=== PATIENT | male | born 1960 | race American Indian/Alaskan Native ===

== ENCOUNTER 2019-03-15 09:28 | Emergency (ER) | payer OTHER ==
[2019-03-15] MEDS ORDERED: KETOROLAC 60 MG/2 ML INJ IM ONE (10:22)
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
[2019-03-15] MEDS ORDERED: traMADol 50 MG TAB PO ONE (12:19)
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
[2019-03-15 13:28] VITALS: BP 124/64
== END 2019-03-15 13:28 | disposition home or self-care (01) ==
LOC: ED 09:28
DX: S16.1XXA Strain of muscle, fascia and tendon at neck level, initial encounter (principal); S39.012A Strain of muscle, fascia and tendon of lower back, initial encounter; S80.01XA Contusion of right knee, initial encounter; F25.0 Schizoaffective disorder, bipolar type; F17.200 Nicotine dependence, unspecified, uncomplicated; Z79.899 Other long term (current) drug therapy; V59.59XA Passenger in pick-up truck or van injured in collision with other motor vehicles in traffic accident, initial encounter; Y93.89 Activity, other specified; Y92.410 Unspecified street and highway as the place of occurrence of the external cause; Y99.8 Other external cause status
CPT/HCPCS: 70450; 72100; 72125; 73562; 82962; 96372; 99284; J1885

== ENCOUNTER 2020-12-18 13:22 | Emergency (ER) | payer SELFPAY ==
[2020-12-18 15:32] VITALS: BP 131/72
--- NOTE | 2020-12-18 15:44 | Emergency Department Report ---
ED Back Pain/Injury HPI - General Chief Complaint: Back Pain/Injury Stated Complaint: LOW BACK PAIN/NECK PAIN Time Seen by Provider: 12/18/20 15:37 Source: patient Limitations: No Limitations - History of Present Illness Initial Comments: This is a 60-year-old -[place] male who presents to the emergency room with neck and low back pain for 2 to 3 days. Patient states he was throwing out some bags while at work a few days ago when his neck and back started to ache. He reports pain is a 9 intermittent achy intensity, pain level 6/10 on pain scale. Denies urinary or bowel, urinary frequency, urgency, dysuria, penile discharge, fever, chills, abdominal pain, numbness or tingling, bruising, or edema. - Related Data Previous Rx's Medication Instructions Recorded Last Taken Type Acetaminophen/Codeine 1 tab PO Q6H PRN #12 tab 02/15/14 Unknown Rx [Acetaminophen-Codeine #3 TAB] Ciprofloxacin HCl [Cipro] 500 mg PO Q12H #20 tab 02/15/14 Unknown Rx Clotrimazole 1% [Lotrimin 1%] 1 applic TP BID #45 gm 02/15/14 Unknown Rx Ibuprofen [Motrin 600 MG tab] 600 mg PO Q8H PRN #30 tablet 02/15/14 Unknown Rx Sulfamethoxazole/Trimethoprim 1 each PO Q12H #20 tablet 02/15/14 Unknown Rx [Bactrim Ds] Ibuprofen [Motrin] 800 mg PO Q8HR PRN #30 tablet 03/15/19 Unknown Rx traMADoL [Ultram 50 MG tab] 50 mg PO Q6HR PRN #20 tablet 03/15/19 Unknown Rx Ibuprofen [Motrin 800 MG tab] 800 mg PO Q8HR PRN #20 tablet 12/18/20 Unknown Rx methOCARBAMOL [Robaxin TAB] 500 mg PO Q6H PRN #12 tablet 12/18/20 Unknown Rx Allergies Allergy/AdvReac Type Severity Reaction Status Date / Time No Known Allergies Allergy Verified 12/18/20 15:32 ED Review of Systems ROS: Stated complaint: LOW BACK PAIN/NECK PAIN Other details as noted in HPI Constitutional: denies: chills, fever Respiratory: denies: cough, shortness of breath, wheezing Cardiovascular: denies: chest pain, palpitations Musculoskeletal: back pain (lumbar), arthralgia (neck pain). denies: joint swelling Skin: denies: rash, lesions Neurological: denies: headache, weakness, paresthesias Psychiatric: denies: anxiety, depression ED Past Medical Hx - Past Medical History Previous Medical History?: No Hx Psychiatric Treatment: No (bipolar/paranoid schizophrenia) - Surgical History Past Surgical History?: No - Social History Smoking Status: Unknown if ever smoked - Medications Home Medications: Home Medications Medication Instructions Recorded Confirmed Last Taken Type Acetaminophen/Codeine 1 tab PO Q6H PRN #12 tab 02/15/14 Unknown Rx [Acetaminophen-Codeine #3 TAB] Ciprofloxacin HCl [Cipro] 500 mg PO Q12H #20 tab 02/15/14 Unknown Rx Clotrimazole 1% [Lotrimin 1%] 1 applic TP BID #45 gm 02/15/14 Unknown Rx Ibuprofen [Motrin 600 MG tab] 600 mg PO Q8H PRN #30 tablet 02/15/14 Unknown Rx Sulfamethoxazole/Trimethoprim 1 each PO Q12H #20 tablet 02/15/14 Unknown Rx [Bactrim Ds] Ibuprofen [Motrin] 800 mg PO Q8HR PRN #30 tablet 03/15/19 Unknown Rx traMADoL [Ultram 50 MG tab] 50 mg PO Q6HR PRN #20 tablet 03/15/19 Unknown Rx Ibuprofen [Motrin 800 MG tab] 800 mg PO Q8HR PRN #20 tablet 12/18/20 Unknown Rx methOCARBAMOL [Robaxin TAB] 500 mg PO Q6H PRN #12 tablet 12/18/20 Unknown Rx ED Physical Exam - General Limitations: No Limitations General appearance: alert, in no apparent distress - Neck Neck exam: Present: tenderness (bilateral trapezius TTP, no c-spine midline tenderness, stepoff, or deformity), full ROM. Absent: meningismus, lymphadenopathy - Respiratory Respiratory exam: Present: normal lung sounds bilaterally. Absent: respiratory distress - Cardiovascular Cardiovascular Exam: Present: regular rate, normal rhythm. Absent: systolic murmur, diastolic murmur, rubs, gallop - Back Exam Back exam: Present: full ROM, paraspinal tenderness (right L-spine paraspinal ttp, no midline tenderness, stepoff, deformity, or erythma). Absent: vertebral tenderness, rash noted - Neurological Exam Neurological exam: Present: alert, oriented X3, normal gait - Psychiatric Psychiatric exam: Present: normal affect, normal mood - Skin Skin exam: Present: warm, dry, intact, normal color. Absent: rash ED Course Vital Signs 12/18/20 12/18/20 13:23 17:29 Temperature 98.9 F Pulse Rate 83 63 Respiratory 16 Rate Blood Pressure 131/72 O2 Sat by Pulse 100 Oximetry ED Medical Decision Making - Medical Decision Making This is a 60-year-old male who presents with bilateral neck and low back pain for 2 to 3 days which is consistent with musculoskeletal spasm or strain. There are no back pain red flags on physical and history. His presentation is not consistent with malignancy, fracture, cauda equina, or pulmonary embolism. Given his clinical picture there is no indication for imaging at this time. Start analgesics and muscle relaxant. He was encouraged to do supportive care. Referral to a primary care doctor and Ortho for follow-up. Patient discharged home stable. Critical care attestation.: If time is entered above; I have spent that time in minutes in the direct care of this critically ill patient, excluding procedure time. ED Disposition Clinical Impression: Strain of cervical portion of both trapezius muscles, Neck pain Lumbago without sciatica Qualifiers: Chronicity: acute Back pain laterality: bilateral Qualified Code(s): M54.5 - Low back pain Low back pain Qualifiers: Chronicity: acute Back pain laterality: bilateral Sciatica presence: without sciatica Qualified Code(s): M54.5 - Low back pain Disposition: HOME / SELF CARE / HOMELESS Is pt being admited?: No Condition: Stable Instructions: Neck Exercises, Muscle Strain, [id number], Back Exercises, [id number] Prescriptions: Ibuprofen [Motrin 800 MG tab] 800 mg PO Q8HR PRN #20 tablet PRN Reason: Pain , Severe (7-10) methOCARBAMOL [Robaxin TAB] 500 mg PO Q6H PRN #12 tablet PRN Reason: Muscle Spasm Referrals: [facility] [Provider Group] - 3-5 Days [facility] [Outside] - 3-5 Days Forms: Work/School Release Form(ED) Time of Disposition: 16:00
== END 2020-12-18 17:29 | disposition home or self-care (01) ==
LOC: ED 13:22
DX: S16.1XXA Strain of muscle, fascia and tendon at neck level, initial encounter (principal); M54.2 Cervicalgia; M54.5 Low back pain; X58.XXXA Exposure to other specified factors, initial encounter; Y93.89 Activity, other specified; Y92.89 Other specified places as the place of occurrence of the external cause; Y99.8 Other external cause status
CPT/HCPCS: 99281